=== PATIENT | female | born 1970 | race Hispanic/Latino ===

== ENCOUNTER 2020-08-06 15:44 | Emergency (ER) | payer BC ==
[2020-08-06 16:00] VITALS: BP 121/88
--- NOTE | 2020-08-06 16:13 | Emergency Department Report ---
ED Extremity Problem HPI - General Chief complaint: Extremity Injury, Lower Stated complaint: LT KNEE PAINS Time Seen by Provider: 08/06/20 16:08 Source: patient Mode of arrival: Ambulatory Limitations: No Limitations - History of Present Illness Initial comments: This is a 49-year-old female presents to ED complaining of left knee pain times a couple of days. Patient states that she hyperextended it and thinks she may have sprained [facility] Patient states that when that happened she immediately put in a knee brace. Patient states that she is able to ambulate without any problems. Patient denies falling, injuries. MD Complaint: extremity pain Location: left, knee -: Yes myalgia, Yes arthralgia Radiation: none - Related Data Previous Rx's Medication Instructions Recorded Last Taken Type Diclofenac Dr [Voltarekady Duque] 75 mg PO BID #30 tablet 08/06/20 Unknown Rx Metaxalone [Skelaxin] 800 mg PO BID #20 tablet 08/06/20 Unknown Rx ED Review of Systems ROS: Stated complaint: LT KNEE PAINS Other details as noted in HPI Comment: All other systems reviewed and negative Constitutional: denies: chills, fever Eyes: denies: eye pain, eye discharge, vision change ENT: denies: ear pain, throat pain Respiratory: denies: cough, shortness of breath, wheezing Cardiovascular: denies: chest pain, palpitations Endocrine: no symptoms reported Gastrointestinal: denies: abdominal pain, nausea, diarrhea Genitourinary: denies: urgency, dysuria, discharge Musculoskeletal: denies: back pain, joint swelling, arthralgia Skin: denies: rash, lesions Neurological: denies: headache, weakness, paresthesias Psychiatric: denies: anxiety, depression Hematological/Lymphatic: denies: easy bleeding, easy bruising ED Past Medical Hx - Social History Smoking Status: Current Every Day Smoker - Medications Home Medications: Home Medications Medication Instructions Recorded Confirmed Last Taken Type Diclofenac Dr [Radha Duque] 75 mg PO BID #30 tablet 08/06/20 Unknown Rx Metaxalone [Skelaxin] 800 mg PO BID #20 tablet 08/06/20 Unknown Rx ED Physical Exam - General Limitations: No Limitations General appearance: alert, in no apparent distress - Head Head exam: Present: atraumatic, normocephalic - Eye Eye exam: Present: normal appearance - ENT ENT exam: Present: mucous membranes moist - Neck Neck exam: Present: normal inspection, full ROM - Respiratory Respiratory exam: Present: normal lung sounds bilaterally. Absent: respiratory distress - Cardiovascular Cardiovascular Exam: Present: regular rate, normal rhythm. Absent: systolic murmur, diastolic murmur, rubs, gallop - GI/Abdominal GI/Abdominal exam: Present: soft, normal bowel sounds - Extremities Exam Extremities exam: Present: normal inspection, full ROM, tenderness (To palpation of the anterior knee), normal capillary refill, other (No MCL or LCL pain or laxity). Absent: calf tenderness - Back Exam Back exam: Present: normal inspection - Neurological Exam Neurological exam: Present: alert, oriented X3, CN II-XII intact, normal gait - Psychiatric Psychiatric exam: Present: normal affect, normal mood - Skin Skin exam: Present: warm, dry, intact, normal color. Absent: rash ED Course Vital Signs 08/06/20 15:56 Temperature 98.9 F Pulse Rate 86 Respiratory 18 Rate Blood Pressure 121/88 O2 Sat by Pulse 98 Oximetry ED Medical Decision Making - Radiology Data Radiology results: report reviewed, image reviewed Fluoro Time In Minutes: LEFT KNEE 3 VIEW(S) INDICATION / CLINICAL INFORMATION: pain COMPARISON: None available. FINDINGS: BONES / JOINT(S): No acute fracture or subluxation. No significant arthritis. SOFT TISSUES: Mild suprapatellar knee joint effusion. ADDITIONAL FINDINGS: None. Signer Name: Julio Woods MD Signed: 08/06/2020 4:48 PM Workstation Name: [id number] Transcribed By: Dictated By: JULIO WOODS Electronically Authenticated By: JULIO WOODS Signed Date/Time: 08/06/20 3247 - Medical Decision Making 49-year-old female presents to ED with left knee sprain. X-ray shows no acute dislocation or fracture. Suprapatellar joint effusion noted. This is most likely suggestive of a strain. Discussed follow-up with orthopedic for further evaluation and MRI. Discussed that she might need a joint aspiration which be done by orthopedic. Discussed rice protocol with the patient in the meantime. Referrals given. Patient is in no acute or respiratory distress. Critical care attestation.: If time is entered above; I have spent that time in minutes in the direct care of this critically ill patient, excluding procedure time. ED Disposition Clinical Impression: Suprapatellar effusion of knee, Knee pain Disposition: - TO HOME OR SELFCARE Is pt being admited?: No Does the pt Need Aspirin: No Condition: Stable Instructions: How to Use Cold Therapy, [id number], Acute Knee Pain, Adult, Jode-[id number]-[id number], Knee Effusion, Ukpl-[id number] Additional Instructions: Make sure to follow up with the primary care physician as discussed. Take all your medications as you've been prescribed. If you have any worsening symptoms or develop new symptoms please return to ED immediately. Prescriptions: Metaxalone [Skelaxin] 800 mg PO BID #[address] [Voltaren Dr] 75 mg PO BID #30 tablet Referrals: OLENA VILCHIS MD [Staff Physician] - 3-5 Days Forms: Work/School Release Form(ED) Time of Disposition: 17:17
--- NOTE | 2020-08-06 16:53 | XRay Report ---
LEFT KNEE 3 VIEW(S) INDICATION / CLINICAL INFORMATION: pain COMPARISON: None available. FINDINGS: BONES / JOINT(S): No acute fracture or subluxation. No significant arthritis. SOFT TISSUES: Mild suprapatellar knee joint effusion. ADDITIONAL FINDINGS: None. Signer Name: Julio Monson MD Signed: 08/06/2020 4:48 PM Workstation Name: [id number]
== END 2020-08-06 18:45 | disposition home or self-care (01) ==
LOC: ED 15:44
DX: M25.462 Effusion, left knee (principal); F17.200 Nicotine dependence, unspecified, uncomplicated; Z79.899 Other long term (current) drug therapy

== ENCOUNTER 2020-10-08 12:12 | Outpatient (CLI) | payer BC ==
[2020-10-08 12:35] LABS: Basophils % (Auto) 0.6 % (0.0-1.8); Eosinophils # (Auto) 0.2 K/mm3 (0.0-0.4); Eosinophils % (Auto) 2.8 % (0.0-4.3); Hematocrit 41.8 % (30.3-42.9); Hemoglobin 14.3 gm/dl (10.1-14.3); Lymphocytes # (Auto) 2.3 K/mm3 (1.2-5.4); Mean Corpuscular HGB Conc 34 % (30-34); Mean Corpuscular Volume 97 fl (79-97); Monocytes # (Auto) 0.3 K/mm3 (0.0-0.8); Monocytes % (Auto) 4.5 % (0.0-7.3); Platelet Count 311 K/mm3 (140-440); Red Blood Count 4.29 M/mm3 (3.65-5.03); Red Cell Distribution Width 13.6 % (13.2-15.2)
[2020-10-08 12:55] LABS: Alanine Aminotransferase 14 units/L (7-56); Albumin 4.1 g/dL (3.9-5); BUN/Creatinine Ratio 16; Blood Urea Nitrogen 13 mg/dL (7-17); Calcium 9.2 mg/dL (8.4-10.2); Chol/HDL Ratio 3.66 %; HDL Cholesterol 50 mg/dL (40-59); Hemolysis Index 9; LDL Cholesterol,Direct 122 mg/dL (50-130)
--- NOTE | 2020-10-08 13:49 | Cat Scan Report ---
CT neck w con INDICATION / CLINICAL INFORMATION: 50 years Female; R22.1 LOCALIZED SWELLING MASS AND LUMP. TECHNIQUE: Contiguous thin cut axial images obtained through the neck following IV contrast. Sagittal and camejo l reconstructions performed by the technologist. All CT scans at this location are performed using CT dose reduction for ALARA by means of automated exposure control. COMPARISON: None available. FINDINGS: MUCOSAL SPACE: The nasopharynx, oropharynx and vallecula, oral cavity and floor of mouth, hypopharynx , and larynx are grossly normal. LYMPH NODES: No significant adenopathy appreciated. SALIVARY GLANDS: Parotid, submandibular, and visualized sublingual glands are within normal limits. THYROID GLAND: There is a large, mixed cystic and solid lesion in the left thyroid lobe, measuring ap proximately 3.7 cm craniocaudally by 2.7 cm transversely by 3.1 cm AP. There is mild mass effect on t he trachea, which is mildly displaced towards the right and minimally narrowed in the transverse dime nsion. Dedicated ultrasound may be helpful for further evaluation. Very small nodule is seen in the lateral aspect of the isthmus on the left. PARANASAL SINUSES: Visualized paranasal sinuses and mastoid air cells are essentially clear. SPINE: No significant abnormality of the cervical spine appreciated. VASCULAR STRUCTURES: Vascular structures are grossly normal in appearance. ADDITIONAL FINDINGS: Surrounding soft tissues are otherwise grossly normal. IMPRESSION: 1. Large left thyroid lobe nodule as described above. Dedicated ultrasound be helpful for further ev aluation. Signer Name: Bakari Salinas MD, III Signed: 10/08/2020 1:44 PM Workstation Name: [id number]
[2020-10-12 12:40] LABS: Vitamin D, 25-OH, D2 <4 ng/mL
== END 2020-10-08 12:13 | disposition home or self-care (01) ==
LOC: CT 12:12
PROVIDERS: ATTEND Internal Medicine
DX: Z00.00 Encounter for general adult medical examination without abnormal findings (principal); Z13.1 Encounter for screening for diabetes mellitus; E55.9 Vitamin D deficiency, unspecified; Z13.29 Encounter for screening for other suspected endocrine disorder; Z13.220 Encounter for screening for lipoid disorders; R22.1 Localized swelling, mass and lump, neck
CPT/HCPCS: 36415; 70491; 80053; 80061; 82306; 83036; 84443; 85025; Q9967